=== PATIENT | male | born 1985 | race Caucasian/White ===

== ENCOUNTER 2021-01-26 09:40 | Inpatient (IN) ==
[2021-01-26 10:25] LABS: Basophils # 0.1 K/mcL (0.0-0.2); Basophils % 0.5 %; Eosinophils # 0.2 K/mcL (0.0-0.6); Eosinophils % 1.2 %; Hematocrit 44.3 % (37.5-50.1); Hemoglobin 14.1 g/dL (12.9-16.9); Immature Granulocytes % 0.4 % (0-4); Lymphocytes # 2.8 K/mcL (0.6-4.6); Lymphocytes % 20.6 %; Mean Corpuscular HGB Conc 31.8 g/dL (31.6-35.5); Mean Corpuscular Hemoglobin 28.1 pg (28.0-33.3); Mean Corpuscular Volume 88.4 fL (83.0-100.0); Mean Platelet Volume 9.6 fL (9.4-12.4); Monocytes # 1.2 K/mcL (0.0-1.3); Monocytes % 8.9 %; Neutrophils # 9.4 K/mcL (1.6-8.9); Platelet Count 456 K/mcL (140-400); Red Blood Count 5.01 M/mcL (4.19-5.50); Segmented Neutrophils % 68.4 %; White Blood Count 13.8 K/mcL (4.3-11.1)
[2021-01-26 10:44] LABS: Alanine Aminotransferase 31 Units/L (7-52); Albumin 3.8 g/dL (3.5-5.7); Albumin/Globulin Ratio 1.5 (1.1-2.2); Alkaline Phosphatase 55 Units/L (34-104); Aspartate Amino Transferase 29 Units/L (13-39); BUN/Creatinine Ratio 14 (6-26); Bilirubin,Total 0.6 mg/dL (0.3-1.0); Blood Urea Nitrogen 13 mg/dL (6-20); Calcium 8.5 mg/dL (8.6-10.3); Carbon Dioxide 24 mEq/L (23-29); Chloride 107 mEq/L (98-107); Globulin 2.6 g/dL (2.4-3.5); Glucose 141 mg/dL (70-105); Osmolality,Calculated 292 (280-300); Potassium 3.9 mEq/L (3.5-5.1); Sodium 140 mEq/L (136-145); Total Protein 6.4 g/dL (6.4-8.9); eGFR For African Americans > 60 (> 60); eGFR For Non-African Americans > 60 (> 60)
[2021-01-26] MEDS ORDERED: Isovue-370 500 ML BOTTLE IVP ONE (10:45)
[2021-01-26 10:47] LABS: Troponin I 0.07 ng/mL (< 0.04)
[2021-01-26] MEDS ORDERED: Aspirin 325 MG TABLET PO ONE (10:47)
[2021-01-26 11:00] LABS: Thyroid Stimulating Hormone 6.212 mcIU/mL (0.340-5.600)
[2021-01-26 11:51] LABS: Chol/HDL Ratio 4.4 (0-4.9); Cholesterol 111 mg/dL (< 200); HDL Cholesterol 25 mg/dL (40-59); LDL Cholesterol,Calculated 49 mg/dL (< 100); Triglycerides 186 mg/dL (< 150)
[2021-01-26] MEDS ORDERED: *HR* Heparin 5,000 UNIT/ML VIAL IVP ONE (12:59)
[2021-01-26] MEDS ORDERED: *HR* Heparin 5,000 UNIT/ML VIAL IVP PRN ×2 (12:59)
[2021-01-26] MEDS ORDERED: Heparin 25,000UNIT/250ML 1/2NS 25,000 UNIT/250 ML IV.SOLN IVC SCH (13:00)
[2021-01-26] MEDS: Sacubitril/Valsartan 24/26 MG 1 TABLET PO SCH ×2 (13:38→20:51)
[2021-01-26] MEDS: Spironolactone 25 MG TABLET PO SCH (14:04)
[2021-01-26] MEDS: Furosemide 40 MG/4 ML VIAL IVP SCH (14:05)
[2021-01-26 14:40] LABS: Hematocrit 41.9 % (37.5-50.1); Hemoglobin 13.3 g/dL (12.9-16.9); Mean Corpuscular HGB Conc 31.7 g/dL (31.6-35.5); Mean Corpuscular Hemoglobin 28.3 pg (28.0-33.3); Mean Corpuscular Volume 89.1 fL (83.0-100.0); Mean Platelet Volume 9.8 fL (9.4-12.4); Platelet Count 428 K/mcL (140-400); Red Cell Distribution Width 14.9 % (11.5-14.5); White Blood Count 14.5 K/mcL (4.3-11.1)
[2021-01-26 14:41] LABS: Heparin anti-factor XA UFH 0.42 IU/mL (0.30-0.70)
[2021-01-26 14:42] LABS: INR 1.3; Prothrombin Time 14.5 Seconds (9.4-12.1)
[2021-01-26] MEDS ORDERED: Naloxone 0.4 MG/ML INJ IVP PRN (14:55)
[2021-01-26 15:58] LABS: Amphetamine Screen,Urine Negative ng/mL (Cutoff=1000); Barbiturate Screen,Urine Negative ng/mL (Cutoff=200); Benzodiazepines Screen,Urine Negative ng/mL (Cutoff=200); Cannabinoid Screen,Urine Negative ng/mL (Cutoff = 50); Cocaine Screen,Urine Negative ng/mL (Cutoff= 300); Opiate Screen,Urine Negative ng/mL (Cutoff=300); Phencyclidine Screen,Urine Negative ng/mL (Cutoff=25)
[2021-01-26] MEDS: Nicotine 21 MG PATCH.TD24 TD SCH (17:06)
[2021-01-26 19:47] LABS: Triiodothyronine (T3) Total 1.09 ng/mL (0.87-1.78)
[2021-01-27 04:36] LABS: Basophils # 0.1 K/mcL (0.0-0.2); Basophils % 0.6 %; Eosinophils # 0.3 K/mcL (0.0-0.6); Hematocrit 48.2 % (37.5-50.1); Hemoglobin 15.3 g/dL (12.9-16.9); Immature Granulocytes % 0.6 % (0-4); Lymphocytes # 3.3 K/mcL (0.6-4.6); Lymphocytes % 20.7 %; Mean Corpuscular HGB Conc 31.7 g/dL (31.6-35.5); Mean Corpuscular Hemoglobin 27.8 pg (28.0-33.3); Mean Corpuscular Volume 87.5 fL (83.0-100.0); Mean Platelet Volume 9.8 fL (9.4-12.4); Monocytes # 1.4 K/mcL (0.0-1.3); Monocytes % 9.1 %; Neutrophils # 10.5 K/mcL (1.6-8.9); Platelet Count 516 K/mcL (140-400); Red Blood Count 5.51 M/mcL (4.19-5.50); White Blood Count 15.7 K/mcL (4.3-11.1)
[2021-01-27 04:55] LABS: BUN/Creatinine Ratio 15 (6-26); Blood Urea Nitrogen 12 mg/dL (6-20); Calcium 8.8 mg/dL (8.6-10.3); Carbon Dioxide 25 mEq/L (23-29); Chloride 108 mEq/L (98-107); Glucose 125 mg/dL (70-105); Magnesium 2.6 mg/dL (1.6-2.6); Osmolality,Calculated 291 (280-300); Phosphorous 3.2 mg/dL (2.7-4.5); Potassium 3.9 mEq/L (3.5-5.1); Sodium 140 mEq/L (136-145); eGFR For African Americans > 60 (> 60); eGFR For Non-African Americans > 60 (> 60)
[2021-01-27] MEDS: Aspirin Enteric Coated 81 MG Tablet PO SCH (08:32)
[2021-01-27] MEDS: Sacubitril/Valsartan 24/26 MG 1 TABLET PO SCH ×2 (08:32→20:56)
[2021-01-27] MEDS: Spironolactone 25 MG TABLET PO SCH (08:33)
[2021-01-27] MEDS: Nicotine 21 MG PATCH.TD24 TD SCH (08:33)
[2021-01-27] MEDS: Furosemide 40 MG/4 ML VIAL IVP SCH (08:33)
[2021-01-27 09:08] LABS: Bilirubin,Urine Negative (Negative); Blood,Urine Negative (Negative); Clarity,Urine Clear (Clear); Color,Urine Light-Yellow (Yellow); Glucose,Urine (UA) Normal (Normal); Ketones,Urine Negative (Negative); Leukocyte Esterase,Urine Negative (Negative); Nitrite,Urine Negative (Negative); PH,Urine 7.5 pH Units (5.0-8.0); Protein,Urine Negative (Neg-Trace); Specific Gravity,Urine 1.012 (1.010-1.025); Urobilinogen,Urine Normal (Normal)
[2021-01-27] MEDS ORDERED: ISOVUE-370 200 ML INFUS..BTL ONE (10:32)
[2021-01-27] MEDS ORDERED: *HR* Heparin 10,000 UNIT/10 ML VIAL ONE (10:32)
[2021-01-27] MEDS ORDERED: 0.9 % Sodium Chloride 2,000 ML ONE (10:32)
[2021-01-27] MEDS ORDERED: Heparin 1,000 UNITS/500 mL 500 ML ONE (10:32)
[2021-01-27] MEDS ORDERED: Nitroglycerin 1,000 MCG/10 ML VIAL IV ONE (10:33)
[2021-01-27] MEDS ORDERED: *HR* Midazolam HCl 2 MG/2 ML VIAL ONE (10:39)
[2021-01-27] MEDS ORDERED: *HR* FentaNYL (PF) 100 MCG/2 ML VIAL ONE (10:39)
[2021-01-27 10:54] LABS: Heparin anti-factor XA UFH 0.24 IU/mL (0.30-0.70)
[2021-01-27] MEDS ORDERED: *HR* Heparin 5,000 UNIT/ML VIAL IVP PRN ×2 (13:12→13:20)
[2021-01-27 14:11] LABS: INR 1.2; Prothrombin Time 13.6 Seconds (9.4-12.1)
[2021-01-27] MEDS: Metoprolol XL (24 HR) Succ 25 MG TAB.ER.24H PO SCH (14:22)
[2021-01-27] MEDS: Heparin 25,000UNIT/250ML 1/2NS 25,000 UNIT/250 ML IV.SOLN IVC SCH (14:22)
[2021-01-27 14:56] LABS: Estimated Average Glucose 146 mg/dl; Hemoglobin A1C 6.7 %
[2021-01-27] MEDS ORDERED: *HR* Warfarin 5 MG TABLET PO ONE (18:00)
[2021-01-27] MEDS ORDERED: Warfarin perPT PO PRN (18:00)
[2021-01-28 03:15] LABS: INR 1.1; Prothrombin Time 13.1 Seconds (9.4-12.1)
[2021-01-28] MEDS: Heparin 25,000UNIT/250ML 1/2NS 25,000 UNIT/250 ML IV.SOLN IVC SCH ×2 (04:31→18:07)
[2021-01-28] MEDS: Spironolactone 25 MG TABLET PO SCH (07:51)
[2021-01-28] MEDS: Furosemide 40 MG/4 ML VIAL IVP SCH (07:51)
[2021-01-28] MEDS: Sacubitril/Valsartan 24/26 MG 1 TABLET PO SCH ×2 (07:51→20:25)
[2021-01-28] MEDS: Metoprolol XL (24 HR) Succ 25 MG TAB.ER.24H PO SCH (07:51)
[2021-01-28] MEDS: Nicotine 21 MG PATCH.TD24 TD SCH (07:51)
[2021-01-28] MEDS: Aspirin Enteric Coated 81 MG Tablet PO SCH (07:51)
[2021-01-28] MEDS ORDERED: *HR* Warfarin 3 MG TABLET PO ONE (18:00)
[2021-01-29 02:54] LABS: Basophils # 0.1 K/mcL (0.0-0.2); Basophils % 0.7 %; Eosinophils # 0.3 K/mcL (0.0-0.6); Eosinophils % 2.7 %; Hematocrit 49.5 % (37.5-50.1); Hemoglobin 15.8 g/dL (12.9-16.9); Immature Granulocytes % 0.5 % (0-4); Lymphocytes # 2.6 K/mcL (0.6-4.6); Lymphocytes % 21.6 %; Mean Corpuscular HGB Conc 31.9 g/dL (31.6-35.5); Mean Corpuscular Hemoglobin 27.4 pg (28.0-33.3); Mean Corpuscular Volume 85.9 fL (83.0-100.0); Mean Platelet Volume 9.4 fL (9.4-12.4); Monocytes % 8.1 %; Platelet Count 506 K/mcL (140-400); Red Blood Count 5.76 M/mcL (4.19-5.50); Red Cell Distribution Width 14.8 % (11.5-14.5); Segmented Neutrophils % 66.4 %
[2021-01-29 03:00] LABS: Heparin anti-factor XA UFH 0.4 IU/mL (0.30-0.70)
[2021-01-29 03:10] LABS: BUN/Creatinine Ratio 22 (6-26); Blood Urea Nitrogen 18 mg/dL (6-20); Calcium 8.7 mg/dL (8.6-10.3); Carbon Dioxide 21 mEq/L (23-29); Chloride 107 mEq/L (98-107); Glucose 136 mg/dL (70-105); Osmolality,Calculated 286 (280-300); Potassium 4.4 mEq/L (3.5-5.1); Sodium 136 mEq/L (136-145); eGFR For African Americans > 60 (> 60); eGFR For Non-African Americans > 60 (> 60)
[2021-01-29 07:41] VITALS: BP 126/70
[2021-01-29] MEDS: Heparin 25,000UNIT/250ML 1/2NS 25,000 UNIT/250 ML IV.SOLN IVC SCH (07:41)
[2021-01-29] MEDS: Furosemide 40 MG/4 ML VIAL IVP SCH (07:42)
[2021-01-29] MEDS: Sacubitril/Valsartan 24/26 MG 1 TABLET PO SCH (07:43)
[2021-01-29] MEDS: Spironolactone 25 MG TABLET PO SCH (07:43)
[2021-01-29] MEDS: Nicotine 21 MG PATCH.TD24 TD SCH (07:43)
[2021-01-29] MEDS: Aspirin Enteric Coated 81 MG Tablet PO SCH (07:44)
[2021-01-29] MEDS ORDERED: Metoprolol XL (24 HR) Succ 25 MG TAB.ER.24H PO SCH (09:00)
[2021-01-29] MEDS ORDERED: *HR* Enoxaparin 150 MG/ML SYRINGE SQ SCH (09:20)
[2021-01-29] MEDS ORDERED: *HR* Warfarin 7.5 MG TABLET PO ONE (18:00)
== END 2021-01-29 11:18 | disposition home or self-care (01) | DRG 192 ==
LOC: 3BNU 09:40 → EMEROOARM 09:40 → 3BNU 12:39 → SUATTDRO 15:32
PROVIDERS: ADMIT Internal Medicine; ATTEND Internal Medicine

== ENCOUNTER 2022-05-09 05:52 | Observation (INO) ==
[2022-05-09] MEDS ORDERED: Furosemide 40 MG/4 ML VIAL IVP ONE (06:19)
[2022-05-09 06:28] LABS: Basophils # 0.1 K/mcL (0.0-0.2); Basophils % 0.6 %; Eosinophils % 0.1 %; Hematocrit 42.9 % (37.5-50.1); Hemoglobin 14.7 g/dL (12.9-16.9); Immature Granulocytes % 0.4 % (0-4); Lymphocytes # 2.3 K/mcL (0.6-4.6); Lymphocytes % 17.1 %; Mean Corpuscular HGB Conc 34.3 g/dL (31.6-35.5); Mean Corpuscular Hemoglobin 28.8 pg (28.0-33.3); Mean Corpuscular Volume 84.1 fL (83.0-100.0); Mean Platelet Volume 10.2 fL (9.4-12.4); Monocytes % 7.4 %; Neutrophils # 9.9 K/mcL (1.6-8.9); Platelet Count 244 K/mcL (140-400); Red Cell Distribution Width 14.6 % (11.5-14.5); Segmented Neutrophils % 74.4 %; White Blood Count 13.2 K/mcL (4.3-11.1)
[2022-05-09 06:41] LABS: VBG HCO3 21 mEq/L (21-27); VBG PCO2 30 mmHg (41-51); VBG PH 7.44 pH Units (7.32-7.42); VBG PO2 107 mmHg (25-50)
[2022-05-09 06:56] LABS: VBG HCO3 21 mEq/L (21-27); VBG PCO2 32 mmHg (41-51); VBG PH 7.44 pH Units (7.32-7.42); VBG PO2 89 mmHg (25-50)
[2022-05-09 07:00] LABS: Alanine Aminotransferase 15 Units/L (7-52); Albumin 3.8 g/dL (3.5-5.7); Albumin/Globulin Ratio 1.5 (1.1-2.2); Alkaline Phosphatase 43 Units/L (34-104); Aspartate Amino Transferase 16 Units/L (13-39); BUN/Creatinine Ratio 11 (6-26); Blood Urea Nitrogen 11 mg/dL (6-20); Calcium 8.6 mg/dL (8.6-10.3); Carbon Dioxide 21 mEq/L (23-29); Chloride 104 mEq/L (98-107); Globulin 2.6 g/dL (2.4-3.5); Glucose 159 mg/dL (70-105); Magnesium 1.5 mg/dL (1.6-2.6); Osmolality,Calculated 281 (280-300); Potassium 3.5 mEq/L (3.5-5.1); Sodium 134 mEq/L (136-145); Total Protein 6.4 g/dL (6.4-8.9); eGFR For African Americans > 60 (> 60); eGFR For Non-African Americans > 60 (> 60)
[2022-05-09 08:13] LABS: Troponin I 0.05 ng/mL (< 0.04)
[2022-05-09] MEDS ORDERED: Aspirin 325 MG TABLET PO ONE (08:16)
[2022-05-09] MEDS ORDERED: Naloxone 0.4 MG/ML INJ IVP PRN (08:58)
[2022-05-09] MEDS ORDERED: Ondansetron 4 MG/2 ML VIAL IVP PRN (08:58)
[2022-05-09] MEDS ORDERED: Melatonin 3 MG TABLET PO PRN (08:58)
[2022-05-09 09:28] LABS: Influenza A PCR Negative (Negative); Influenza B PCR Negative (Negative); Resp. Syncytial Virus PCR Negative (Negative)
[2022-05-09] MEDS ORDERED: Iopamidol - 370 500 ML MLS IVP ONE (09:36)
[2022-05-09 09:40] LABS: SARS-CoV-2 by PCR (In House) Negative (Negative)
[2022-05-09] MEDS ORDERED: *HR* Metoprolol 5 MG/5 ML VIAL IVP PRN (09:50)
[2022-05-09] MEDS ORDERED: Nitroglycerin 0.4 MG TAB.SUBL SL PRN (09:52)
[2022-05-09 13:26] LABS: Phosphorous 3.6 mg/dL (2.7-4.5); Troponin I 0.04 ng/mL (< 0.04)
[2022-05-09] MEDS: *HR* Heparin 5,000 UNIT/ML VIAL SQ SCH ×2 (13:39→19:29)
[2022-05-09] MEDS: Furosemide 40 MG/4 ML VIAL IVP SCH (19:34)
[2022-05-09] MEDS ORDERED: Furosemide 40 MG/4 ML VIAL IVP SCH (21:00)
[2022-05-09] MEDS ORDERED: Ipratropium/Albuterol Neb 3 ML IH PRN (22:46)
[2022-05-09] MEDS: Azithromycin 500 MG in 0.9 % Sodium Chloride 250 ML IVPB SCH (23:17)
[2022-05-09] MEDS: cefTRIAXone 1,000 MG in 0.9 % Sodium Chloride 10 ML IVPB SCH (23:17)
[2022-05-09] MEDS ORDERED: Acetaminophen 325 MG TABLET PO ONE (23:35)
[2022-05-10] MEDS: *HR* Heparin 5,000 UNIT/ML VIAL SQ SCH ×3 (04:44→21:13)
[2022-05-10 06:53] LABS: BUN/Creatinine Ratio 15 (6-26); Blood Urea Nitrogen 14 mg/dL (6-20); Calcium 8.6 mg/dL (8.6-10.3); Carbon Dioxide 24 mEq/L (23-29); Chloride 103 mEq/L (98-107); Glucose 115 mg/dL (70-105); Osmolality,Calculated 285 (280-300); Potassium 3.3 mEq/L (3.5-5.1); Sodium 137 mEq/L (136-145); eGFR For African Americans > 60 (> 60); eGFR For Non-African Americans > 60 (> 60)
[2022-05-10] MEDS: Furosemide 40 MG/4 ML VIAL IVP SCH ×2 (07:14→21:12)
[2022-05-10] MEDS: cefTRIAXone 1,000 MG in 0.9 % Sodium Chloride 10 ML IVPB SCH (07:17)
[2022-05-10] MEDS ORDERED: D5% in Water 1,000 ML IVC PRN (10:38)
[2022-05-10] MEDS ORDERED: Dextrose Gel 15 GM/37.5 ML TUBE PO PRN ×2 (10:38)
[2022-05-10] MEDS ORDERED: *HR* Dextrose 50 % in Water (Syg) 50 ML SYRINGE IVP PRN (10:38)
[2022-05-10] MEDS: Spironolactone 25 MG TABLET PO SCH (11:08)
[2022-05-10] MEDS: Aspirin Enteric Coated 81 MG Tablet PO SCH (11:08)
[2022-05-10] MEDS: Sacubitril/Valsartan 24/26 MG 1 TABLET PO SCH ×2 (11:12→21:13)
[2022-05-10] MEDS: Insulin LISPRO 300 UNITS/3 ML VIAL SUBQ SCH ×2 (11:42→16:00)
[2022-05-10] MEDS ORDERED: Insulin LISPRO 300 UNITS/3 ML VIAL SUBQ SCH (21:00)
[2022-05-10] MEDS: Metoprolol XL (24 HR) Succ 50 MG TAB.ER.24H PO SCH (21:13)
[2022-05-10] MEDS: Azithromycin 500 MG in 0.9 % Sodium Chloride 250 ML IVPB SCH (23:29)
[2022-05-11] MEDS: *HR* Heparin 5,000 UNIT/ML VIAL SQ SCH (04:34)
[2022-05-11 06:14] VITALS: BP 136/93; PULSE 81; TEMP 97.8; O2SAT 97
[2022-05-11 06:48] LABS: Basophils # 0.1 K/mcL (0.0-0.2); Eosinophils # 0.1 K/mcL (0.0-0.6); Eosinophils % 1.1 %; Hematocrit 51.9 % (37.5-50.1); Immature Granulocytes % 0.4 % (0-4); Lymphocytes # 2.7 K/mcL (0.6-4.6); Lymphocytes % 33.7 %; Mean Corpuscular HGB Conc 32.4 g/dL (31.6-35.5); Mean Corpuscular Hemoglobin 27.5 pg (28.0-33.3); Mean Corpuscular Volume 84.9 fL (83.0-100.0); Mean Platelet Volume 10.8 fL (9.4-12.4); Monocytes # 0.9 K/mcL (0.0-1.3); Monocytes % 11.4 %; Platelet Count 299 K/mcL (140-400); Red Blood Count 6.11 M/mcL (4.19-5.50); Red Cell Distribution Width 14.7 % (11.5-14.5); Segmented Neutrophils % 52.4 %; White Blood Count 7.9 K/mcL (4.3-11.1)
[2022-05-11 06:51] LABS: Hemoglobin 16.8 g/dL (12.9-16.9); Neutrophils # 4.1 K/mcL (1.6-8.9)
[2022-05-11 07:29] LABS: BUN/Creatinine Ratio 18 (6-26); Blood Urea Nitrogen 14 mg/dL (6-20); Calcium 8.8 mg/dL (8.6-10.3); Carbon Dioxide 23 mEq/L (23-29); Chloride 106 mEq/L (98-107); Glucose 113 mg/dL (70-105); Osmolality,Calculated 287 (280-300); Potassium 4.3 mEq/L (3.5-5.1); Sodium 138 mEq/L (136-145); eGFR For African Americans > 60 (> 60); eGFR For Non-African Americans > 60 (> 60)
[2022-05-11] MEDS: Insulin LISPRO 300 UNITS/3 ML VIAL SUBQ SCH (07:52)
[2022-05-11] MEDS: Metoprolol XL (24 HR) Succ 50 MG TAB.ER.24H PO SCH (08:44)
[2022-05-11] MEDS: Spironolactone 25 MG TABLET PO SCH (08:44)
[2022-05-11] MEDS: Aspirin Enteric Coated 81 MG Tablet PO SCH (08:44)
[2022-05-11] MEDS: cefTRIAXone 1,000 MG in 0.9 % Sodium Chloride 10 ML IVPB SCH (08:44)
[2022-05-11] MEDS: Sacubitril/Valsartan 24/26 MG 1 TABLET PO SCH (08:44)
[2022-05-11] MEDS: Furosemide 40 MG/4 ML VIAL IVP SCH (08:45)
== END 2022-05-11 11:41 | disposition home or self-care (01) ==
LOC: EMEROOARM 05:52 → 2ANU 05:52 → SUATTDRO 09:38 → 2ANU 11:15
PROVIDERS: ADMIT Student in an Organized Health Care Education/Training Program; ATTEND Family Medicine

== ENCOUNTER 2022-07-04 04:33 | Observation (INO) ==
[2022-07-04 05:49] LABS: Basophils % 0.4 %; Eosinophils # 0.1 K/mcL (0.0-0.6); Eosinophils % 1.2 %; Hematocrit 40.5 % (37.5-50.1); Hemoglobin 13.4 g/dL (12.9-16.9); Immature Granulocytes % 0.3 % (0-4); Lymphocytes # 2.8 K/mcL (0.6-4.6); Lymphocytes % 24.4 %; Mean Corpuscular HGB Conc 33.1 g/dL (31.6-35.5); Mean Corpuscular Hemoglobin 28.6 pg (28.0-33.3); Mean Corpuscular Volume 86.4 fL (83.0-100.0); Mean Platelet Volume 10.3 fL (9.4-12.4); Monocytes # 1.1 K/mcL (0.0-1.3); Monocytes % 9.3 %; Neutrophils # 7.3 K/mcL (1.6-8.9); Platelet Count 354 K/mcL (140-400); Red Blood Count 4.69 M/mcL (4.19-5.50); Red Cell Distribution Width 13.8 % (11.5-14.5); Segmented Neutrophils % 64.4 %; White Blood Count 11.3 K/mcL (4.3-11.1)
[2022-07-04 06:19] LABS: VBG HCO3 24 mEq/L (21-27); VBG PCO2 42 mmHg (41-51); VBG PH 7.36 pH Units (7.32-7.42); VBG PO2 48 mmHg (25-50)
[2022-07-04 06:20] LABS: Alanine Aminotransferase 16 Units/L (7-52); Albumin 3.8 g/dL (3.5-5.7); Albumin/Globulin Ratio 1.5 (1.1-2.2); Alkaline Phosphatase 53 Units/L (34-104); Aspartate Amino Transferase 14 Units/L (13-39); BUN/Creatinine Ratio 8 (6-26); Bilirubin,Direct 0.1 mg/dL (0.0-0.2); Bilirubin,Indirect 0.3 mg/dL (0.0-1.0); Bilirubin,Total 0.4 mg/dL (0.3-1.0); Blood Urea Nitrogen 7 mg/dL (6-20); Calcium 8.6 mg/dL (8.6-10.3); Carbon Dioxide 24 mEq/L (23-29); Chloride 108 mEq/L (98-107); Globulin 2.5 g/dL (2.4-3.5); Glucose 122 mg/dL (70-105); Magnesium 1.7 mg/dL (1.6-2.6); Osmolality,Calculated 287 (280-300); Sodium 139 mEq/L (136-145); Total Protein 6.3 g/dL (6.4-8.9); Troponin I 0.03 ng/mL (< 0.04)
[2022-07-04] MEDS ORDERED: Iopamidol - 370 500 ML MLS IVP ONE (06:29)
[2022-07-04 06:51] LABS: Adenovirus Not Detected (Not Detect); Bordetella Pertussis Not Detected (Not Detect); Chlamydophila pneumoniae Not Detected (Not Detect); Coronavirus 229E Not Detected (Not Detect); Coronavirus HKU1 Not Detected (Not Detect); Coronavirus NL63 Not Detected (Not Detect); Coronavirus OC43 Not Detected (Not Detect); Human Metapneumovirus Not Detected (Not Detect); Human Rhinovirus/Enterovirus Not Detected (Not Detect); Influenza A Subtype 2009 H1 Not Detected (Not Detect); Influenza B Not Detected (Not Detect); Mycoplasma pneumoniae Not Detected (Not Detect); Parainfluenza Virus 1 Not Detected (Not Detect); Parainfluenza Virus 2 Not Detected (Not Detect); Parainfluenza Virus 3 Not Detected (Not Detect); Parainfluenza Virus 4 Not Detected (Not Detect); Respiratory Syncytial Virus Not Detected (Not Detect); SARS-CoV-2 Not Detected (Not Detect)
[2022-07-04] MEDS ORDERED: Furosemide 40 MG/4 ML VIAL IVP ONE (07:45)
[2022-07-04] MEDS ORDERED: Naloxone 0.4 MG/ML INJ IVP PRN (08:59)
[2022-07-04] MEDS ORDERED: Dextrose Gel 15 GM/37.5 ML TUBE PO PRN ×2 (10:30)
[2022-07-04] MEDS ORDERED: *HR* Dextrose 50 % in Water (Syg) 50 ML SYRINGE IVP PRN (10:30)
[2022-07-04] MEDS ORDERED: D5% in Water 1,000 ML IVC PRN (10:30)
[2022-07-04] MEDS: Insulin LISPRO 300 UNITS/3 ML VIAL SUBQ SCH ×2 (13:46→17:51)
[2022-07-04] MEDS: Furosemide 40 MG/4 ML VIAL IVP SCH (20:33)
[2022-07-05 02:45] LABS: Basophils # 0.1 K/mcL (0.0-0.2); Basophils % 0.4 %; Eosinophils # 0.1 K/mcL (0.0-0.6); Hematocrit 44.3 % (37.5-50.1); Hemoglobin 14.9 g/dL (12.9-16.9); Immature Granulocytes % 0.3 % (0-4); Lymphocytes # 3.6 K/mcL (0.6-4.6); Mean Corpuscular HGB Conc 33.6 g/dL (31.6-35.5); Mean Corpuscular Hemoglobin 28.6 pg (28.0-33.3); Mean Platelet Volume 10.2 fL (9.4-12.4); Monocytes # 1.8 K/mcL (0.0-1.3); Monocytes % 14.7 %; Neutrophils # 6.7 K/mcL (1.6-8.9); Platelet Count 378 K/mcL (140-400); Red Blood Count 5.21 M/mcL (4.19-5.50); Red Cell Distribution Width 13.7 % (11.5-14.5); Segmented Neutrophils % 54.6 %; White Blood Count 12.3 K/mcL (4.3-11.1)
[2022-07-05 03:02] LABS: Estimated Average Glucose 137 mg/dl; Hemoglobin A1C 6.4 %
[2022-07-05 03:06] LABS: BUN/Creatinine Ratio 12 (6-26); Blood Urea Nitrogen 11 mg/dL (6-20); Calcium 9.1 mg/dL (8.6-10.3); Carbon Dioxide 26 mEq/L (23-29); Chloride 102 mEq/L (98-107); Glucose 131 mg/dL (70-105); Osmolality,Calculated 285 (280-300); Sodium 137 mEq/L (136-145)
[2022-07-05] MEDS: Insulin LISPRO 300 UNITS/3 ML VIAL SUBQ SCH ×5 (06:54→21:34)
[2022-07-05] MEDS: Spironolactone 25 MG TABLET PO SCH (08:53)
[2022-07-05] MEDS: Furosemide 40 MG/4 ML VIAL IVP SCH ×2 (08:53→21:35)
[2022-07-05] MEDS: Aspirin Enteric Coated 81 MG Tablet PO SCH (08:53)
[2022-07-05] MEDS ORDERED: Metoprolol XL (24 HR) Succ 50 MG TAB.ER.24H PO SCH (09:00)
[2022-07-05] MEDS ORDERED: Ringers Solution, Lactated 1,000 ML IVC SCH (11:45)
[2022-07-05] MEDS ORDERED: Heparin 1,000 UNITS/500 mL 500 ML ONE (11:46)
[2022-07-05] MEDS ORDERED: Ketamine *HR* 500 MG/10 ML MDV ONE (11:57)
[2022-07-05] MEDS ORDERED: *HR* Midazolam HCl 2 MG/2 ML VIAL ONE (11:57)
[2022-07-05] MEDS ORDERED: *HR* Propofol 200 MG/20 ML VIAL IVP ONE (11:58)
[2022-07-05] MEDS ORDERED: Lidocaine -MPF 2% 5 ML VIAL ONE (11:59)
[2022-07-05] MEDS ORDERED: Lidocaine HCL 4 ML Topical Solution (Laryng-O-Jet Kit Sterile Pak) TP ONE (12:02)
[2022-07-05] MEDS ORDERED: *HR* Rocuronium Bromide 50 MG/5 ML VIAL ONE ×2 (12:14→13:05)
[2022-07-05] MEDS ORDERED: Ondansetron 4 MG/2 ML VIAL ONE (13:27)
[2022-07-05] MEDS: *HR* Heparin 5,000 UNIT/ML VIAL SQ SCH ×2 (15:01→21:35)
[2022-07-05] MEDS: Sacubitril/Valsartan 24/26 MG 1 TABLET PO SCH (21:34)
[2022-07-05] MEDS: Metoprolol XL (24 HR) Succ 50 MG TAB.ER.24H PO SCH (21:34)
[2022-07-06 02:13] LABS: Basophils # 0.1 K/mcL (0.0-0.2); Basophils % 0.4 %; Eosinophils # 0.1 K/mcL (0.0-0.6); Eosinophils % 0.7 %; Hematocrit 44.4 % (37.5-50.1); Hemoglobin 14.9 g/dL (12.9-16.9); Immature Granulocytes % 0.3 % (0-4); Lymphocytes # 3.2 K/mcL (0.6-4.6); Lymphocytes % 22.5 %; Mean Corpuscular HGB Conc 33.6 g/dL (31.6-35.5); Mean Corpuscular Hemoglobin 28.8 pg (28.0-33.3); Mean Corpuscular Volume 85.9 fL (83.0-100.0); Mean Platelet Volume 10.2 fL (9.4-12.4); Monocytes # 1.8 K/mcL (0.0-1.3); Monocytes % 12.9 %; Platelet Count 371 K/mcL (140-400); Red Blood Count 5.17 M/mcL (4.19-5.50); Red Cell Distribution Width 13.6 % (11.5-14.5); Segmented Neutrophils % 63.2 %; White Blood Count 14.3 K/mcL (4.3-11.1)
[2022-07-06 02:40] LABS: BUN/Creatinine Ratio 17 (6-26); Blood Urea Nitrogen 17 mg/dL (6-20); Carbon Dioxide 28 mEq/L (23-29); Chloride 101 mEq/L (98-107); Glucose 127 mg/dL (70-105); Magnesium 2.1 mg/dL (1.6-2.6); Osmolality,Calculated 287 (280-300); Sodium 137 mEq/L (136-145)
[2022-07-06] MEDS: *HR* Heparin 5,000 UNIT/ML VIAL SQ SCH ×3 (05:38→21:24)
[2022-07-06] MEDS: Metoprolol XL (24 HR) Succ 50 MG TAB.ER.24H PO SCH ×2 (07:27→21:24)
[2022-07-06] MEDS: Aspirin Enteric Coated 81 MG Tablet PO SCH (07:28)
[2022-07-06] MEDS: Spironolactone 25 MG TABLET PO SCH (07:28)
[2022-07-06] MEDS: Sacubitril/Valsartan 24/26 MG 1 TABLET PO SCH ×2 (07:28→21:24)
[2022-07-06] MEDS: Furosemide 40 MG/4 ML VIAL IVP SCH (07:28)
[2022-07-06] MEDS: Insulin LISPRO 300 UNITS/3 ML VIAL SUBQ SCH ×4 (07:55→21:25)
[2022-07-06 18:45] LABS: Appearance of Body Fluid Slightly Hazy (Clear)
[2022-07-06 18:46] LABS: Volume of Body Fluid 25 mL
[2022-07-07] MEDS: *HR* Heparin 5,000 UNIT/ML VIAL SQ SCH (05:52)
[2022-07-07 07:04] VITALS: BP 105/78; PULSE 76; TEMP 97.7; O2SAT 96
[2022-07-07] MEDS ORDERED: Torsemide 20 MG TABLET PO SCH (09:00)
[2022-07-07] MEDS: Aspirin Enteric Coated 81 MG Tablet PO SCH (09:49)
[2022-07-07] MEDS: Sacubitril/Valsartan 24/26 MG 1 TABLET PO SCH (09:49)
[2022-07-07] MEDS: Spironolactone 25 MG TABLET PO SCH (09:49)
[2022-07-07] MEDS: Metoprolol XL (24 HR) Succ 50 MG TAB.ER.24H PO SCH (09:49)
[2022-07-07] MEDS: Insulin LISPRO 300 UNITS/3 ML VIAL SUBQ SCH (09:51)
[2022-07-07 09:57] LABS: Basophils % 0.4 %; Eosinophils # 0.4 K/mcL (0.0-0.6); Eosinophils % 4.2 %; Hematocrit 46.6 % (37.5-50.1); Hemoglobin 15.4 g/dL (12.9-16.9); Immature Granulocytes % 0.3 % (0-4); Lymphocytes # 3.1 K/mcL (0.6-4.6); Lymphocytes % 31.1 %; Mean Corpuscular Hemoglobin 28.6 pg (28.0-33.3); Mean Corpuscular Volume 86.5 fL (83.0-100.0); Mean Platelet Volume 10.3 fL (9.4-12.4); Monocytes # 0.8 K/mcL (0.0-1.3); Monocytes % 7.7 %; Neutrophils # 5.7 K/mcL (1.6-8.9); Platelet Count 386 K/mcL (140-400); Red Blood Count 5.39 M/mcL (4.19-5.50); Red Cell Distribution Width 13.8 % (11.5-14.5); Segmented Neutrophils % 56.3 %
[2022-07-07 10:17] LABS: BUN/Creatinine Ratio 21 (6-26); Blood Urea Nitrogen 20 mg/dL (6-20); Calcium 9.2 mg/dL (8.6-10.3); Carbon Dioxide 24 mEq/L (23-29); Chloride 103 mEq/L (98-107); Glucose 212 mg/dL (70-105); Magnesium 1.9 mg/dL (1.6-2.6); Osmolality,Calculated 293 (280-300); Potassium 3.7 mEq/L (3.5-5.1); Sodium 137 mEq/L (136-145)
== END 2022-07-07 09:57 | disposition home or self-care (01) ==
LOC: 3ANU 04:33 → EMEROOARM 04:33 → SUATTDRO 15:57 → 3ANU 16:49
PROVIDERS: ADMIT Internal Medicine; ATTEND Family Medicine

== ENCOUNTER 2022-08-10 20:57 | Observation (INO) ==
[2022-08-11] MEDS ORDERED: Naloxone 0.4 MG/ML INJ IVP PRN (00:18)
[2022-08-11] MEDS ORDERED: Melatonin 3 MG TABLET PO PRN (00:18)
[2022-08-11] MEDS ORDERED: Ondansetron ODT 4 MG TAB.RAPDIS SL PRN (00:18)
[2022-08-11] MEDS ORDERED: Dextrose Gel 15 GM/37.5 ML TUBE PO PRN ×2 (00:40)
[2022-08-11] MEDS ORDERED: *HR* Dextrose 50 % in Water (Syg) 50 ML SYRINGE IVP PRN (00:40)
[2022-08-11] MEDS ORDERED: D5% in Water 1,000 ML IVC PRN (00:40)
[2022-08-11 01:51] LABS: Basophils # 0.1 K/mcL (0.0-0.2); Basophils % 0.4 %; Eosinophils # 0.2 K/mcL (0.0-0.6); Eosinophils % 1.3 %; Hematocrit 41.5 % (37.5-50.1); Hemoglobin 13.6 g/dL (12.9-16.9); Immature Granulocytes % 0.4 % (0-4); Lymphocytes # 3.6 K/mcL (0.6-4.6); Lymphocytes % 26.6 %; Mean Corpuscular HGB Conc 32.8 g/dL (31.6-35.5); Mean Corpuscular Hemoglobin 27.9 pg (28.0-33.3); Mean Corpuscular Volume 85.2 fL (83.0-100.0); Mean Platelet Volume 9.7 fL (9.4-12.4); Monocytes # 1.7 K/mcL (0.0-1.3); Monocytes % 12.9 %; Neutrophils # 7.9 K/mcL (1.6-8.9); Platelet Count 371 K/mcL (140-400); Red Blood Count 4.87 M/mcL (4.19-5.50); Red Cell Distribution Width 13.6 % (11.5-14.5); Segmented Neutrophils % 58.4 %; White Blood Count 13.5 K/mcL (4.3-11.1)
[2022-08-11 02:06] LABS: Alanine Aminotransferase 16 Units/L (7-52); Albumin 3.8 g/dL (3.5-5.7); Albumin/Globulin Ratio 1.2 (1.1-2.2); Alkaline Phosphatase 56 Units/L (34-104); Aspartate Amino Transferase 15 Units/L (13-39); BUN/Creatinine Ratio 13 (6-26); Bilirubin,Total 0.8 mg/dL (0.3-1.0); Blood Urea Nitrogen 12 mg/dL (6-20); Carbon Dioxide 27 mEq/L (23-29); Chloride 102 mEq/L (98-107); Globulin 3.1 g/dL (2.4-3.5); Glucose 128 mg/dL (70-105); Magnesium 1.7 mg/dL (1.6-2.6); Osmolality,Calculated 283 (280-300); Phosphorous 4.3 mg/dL (2.7-4.5); Potassium 3.6 mEq/L (3.5-5.1); Sodium 136 mEq/L (136-145); Total Protein 6.9 g/dL (6.4-8.9); Troponin I 0.03 ng/mL (< 0.04)
[2022-08-11] MEDS: *HR* Heparin 5,000 UNIT/ML VIAL SQ SCH ×2 (05:12→17:50)
[2022-08-11] MEDS ORDERED: carvediloL 6.25 MG TABLET PO SCH (08:00)
[2022-08-11] MEDS: Insulin LISPRO 300 UNITS/3 ML VIAL SUBQ SCH ×3 (08:59→17:27)
[2022-08-11] MEDS: Spironolactone 25 MG TABLET PO SCH (09:10)
[2022-08-11] MEDS: Furosemide 40 MG/4 ML VIAL IVP SCH ×2 (09:11→17:50)
[2022-08-11] MEDS: Aspirin 81 MG TAB.CHEW PO SCH (09:11)
[2022-08-11] MEDS: Sacubitril/Valsartan 24/26 MG 1 TABLET PO SCH ×2 (12:15→19:56)
[2022-08-11] MEDS: Metoprolol XL (24 HR) Succ 50 MG TAB.ER.24H PO SCH (19:56)
[2022-08-11] MEDS ORDERED: Insulin LISPRO 300 UNITS/3 ML VIAL SUBQ SCH (21:00)
[2022-08-12] MEDS: *HR* Heparin 5,000 UNIT/ML VIAL SQ SCH (05:03)
[2022-08-12 05:58] LABS: BUN/Creatinine Ratio 21 (6-26); Blood Urea Nitrogen 14 mg/dL (6-20); Calcium 9.1 mg/dL (8.6-10.3); Carbon Dioxide 22 mEq/L (23-29); Chloride 105 mEq/L (98-107); Glucose 155 mg/dL (70-105); Osmolality,Calculated 284 (280-300); Potassium 3.8 mEq/L (3.5-5.1); Sodium 135 mEq/L (136-145)
[2022-08-12] MEDS: Metoprolol XL (24 HR) Succ 50 MG TAB.ER.24H PO SCH (07:47)
[2022-08-12] MEDS: Sacubitril/Valsartan 24/26 MG 1 TABLET PO SCH (07:47)
[2022-08-12] MEDS: Aspirin 81 MG TAB.CHEW PO SCH (07:47)
[2022-08-12] MEDS: Furosemide 40 MG/4 ML VIAL IVP SCH (07:48)
[2022-08-12] MEDS: Spironolactone 25 MG TABLET PO SCH (07:48)
[2022-08-12 07:50] VITALS: BP 112/77; PULSE 74; TEMP 97.6; O2SAT 96
[2022-08-12] MEDS: Insulin LISPRO 300 UNITS/3 ML VIAL SUBQ SCH (07:58)
[2022-08-12] MEDS ORDERED: Torsemide 20 MG TABLET PO SCH (09:00)
== END 2022-08-12 09:59 | disposition home or self-care (01) ==
LOC: 3ANU → SUATTDRO 23:34
PROVIDERS: ADMIT Internal Medicine; ATTEND Internal Medicine